=== PATIENT | female | born 1980 | race Caucasian/White ===

== ENCOUNTER 2019-06-22 12:00 | Emergency (ER) | payer OTHER, SELFPAY ==
[2019-06-22 12:04] VITALS: BP 134/85; PULSE 76; RESP 20; TEMP 37; O2SAT 100
--- NOTE | 2019-06-22 12:26 | ED.SKABFB ---
HPI - Skin/Abscess/Foreign Bdy General Chief complaint: Skin/Abscess/Foreign Body Stated complaint: rash Source: patient Mode of arrival: ambulatory Limitations: no limitations History of Present Illness HPI narrative: Patient is a 39-year-old female who presents complaining of rash to bilateral upper arms and bilateral upper legs x4 days. Patient reports itchy. Patient reports taking Certizine daily and using hydrocortisone cream without relief. Patient denies use of new lotions, soaps, detergents or eating new foods. Patient denies pain, but reports pruritic. MD complaint: rash Related Data Home Medications Medication Instructions Recorded Confirmed metformin 1,000 mg PO BID 06/22/19 06/22/19 triamterene-hydrochlorothiazid 1 tablet PO QAM 06/22/19 06/22/19 Allergies Allergy/AdvReac Type Severity Reaction Status Date / Time No Known Allergies Allergy Verified 06/22/19 12:12 Review of Systems Review of Systems: Narrative: CONSTITUTIONAL: Denies fever, chills, or sweats. EYES: Denies visual changes, redness, or discharge. ENT: Denies rhinorrhea, congestion, sore throat, or otalgia. CARDIOVASCULAR: Denies chest pain, palpitations, or edema. RESPIRATORY: Denies cough or dyspnea. GASTROINTESTINAL: Denies abdominal pain, nausea, vomiting, or diarrhea. GENITOURINARY: Denies dysuria or hematuria. SKIN: Pruritic rash to bilateral upper arms and bilateral thighs MUSCULOSKELETAL: Denies back pain, joint pain, or myalgia. NEUROLOGIC: Denies headache, numbness, dizziness, or weakness. PSYCHIATRIC: Denies anxiety or depression. [facility] Past Medical History Medical History HTN (hypertension) Surgical History Surgical History H/O: Hx of cholecystectomy Social History Social History (Updated 06/22/19 @ 12:30 by RIOS Brennan) Smoking status: Never smoker Substance use: never Living arrangements: with family Occupation/Education: occupation Gender identity (if verbalized by the patient): Female Exam Narrative: Exam Narrative: GENERAL: Well-appearing, well-nourished, and in no acute distress. HEAD: Normocephalic, atraumatic. EYES: No redness or drainage. Conjunctiva are normal. ENT: Mucous membranes pink and moist. CHEST: No respiratory distress. Clear to auscultation. HEART: Regular rate and rhythm. No murmur appreciated. Normal peripheral pulses. EXTREMITIES: Normal range of motion. No edema. SKIN: Pruritic, erythematous plaques and papules to bilateral upper arms and bilateral anterior thighs NEURO: No focal deficits. Alert and oriented x3. Gait steady. PSYCH: Normal affect. No signs of depression or anxiety. Course Vital Signs Vital signs: Vital Signs Temperature 37.0 C 06/22/19 12:04 Pulse Rate 76 06/22/19 12:04 Respiratory Rate 20 06/22/19 12:04 Blood Pressure 134/85 06/22/19 12:04 Pulse Oximetry 100 06/22/19 12:04 Temperature 37.0 C 06/22/19 12:04 Pulse Rate 76 06/22/19 12:04 Respiratory Rate 20 06/22/19 12:04 Blood Pressure 134/85 06/22/19 12:04 Pulse Oximetry 100 06/22/19 12:04 MDM - Skin/Abscess/Foreign Bdy MDM Narrative Medical decision making narrative: Patient has most likely a contact dermatitis from unknown source. Discussed plan of care with patient. Patient agreeable to plan of care. Patient is stable for discharge to home with outpatient follow-up as needed. Differential Diagnosis Differential diagnosis: Likely contact dermatitis Critical Care Time Critical Care Time Critical Care Time: No Discharge Plan Discharge Clinical Impression: Contact dermatitis Qualifiers: Contact dermatitis type: unspecified Contact dermatitis trigger: unspecified trigger Qualified Code(s): L25.9 - Unspecified contact dermatitis, unspecified cause Patient Disposition: Home, Self-Care Condition: Stable Instruction
== END 2019-06-22 12:45 | disposition home or self-care (01) ==
PROVIDERS: Emergency Provider Nurse Practitioner
DX: L25.9 Unspecified contact dermatitis, unspecified cause (principal); I10 Essential (primary) hypertension; R73.03 Prediabetes
CPT/HCPCS: 99213; G0463